=== PATIENT | male | born 1975 | race Two or more races ===

== ENCOUNTER 2024-08-02 15:02 | Emergency (ER) | payer OTHER ==
[2024-08-02] MEDS: Erythromycin Base 0.5% Ophth Oint 1 GM Tube EYEBOTH ONE (16:11)
[2024-08-02] MEDS: Proparacaine 0.5% Ophth Soln 15 ML Bottle EYEBOTH ONE (16:12)
[2024-08-02] MEDS: Fluorescein 1 MG Ophth Strip EYEBOTH ONE (16:12)
== END 2024-08-02 16:12 | disposition home or self-care (01) ==
LOC: JD.ED 15:02
DX: T15.91XA Foreign body on external eye, part unspecified, right eye, initial encounter (principal); S05.02XA Injury of conjunctiva and corneal abrasion without foreign body, left eye, initial encounter; W20.8XXA Other cause of strike by thrown, projected or falling object, initial encounter
CPT/HCPCS: 65222; 99283; A9270; J3490